=== PATIENT | female | born 1990 | race African-American/Black ===

== ENCOUNTER 2023-10-14 22:17 | Emergency (ER) | payer BC ==
[2023-10-14 22:26] VITALS: RESP 18; TEMP 98.2; BMI 54.0
[2023-10-15 00:24] LABS: EPI CELLS >36 /uL (0-25.1); HCG,QUALITATIVE URINE Negative; HYALINE CASTS 2 /uL (0-3.1); URINE APPEARANCE CLOUDY; URINE BACTERIA 718 /uL (0-1359); URINE BILIRUBIN NEGATIVE (NEGATIVE); URINE COLOR YELLOW; URINE GLUCOSE (UA) NEGATIVE (NEGATIVE); URINE KETONE TRACE (NEGATIVE); URINE LEUK ESTERASE NEGATIVE (NEGATIVE); URINE NITRITE NEGATIVE (NEGATIVE); URINE PROTEIN 1+ (NEGATIVE); URINE RBC 40 /uL (0-23.9); URINE WBC 54 /uL (0-25.8)
[2023-10-15] MEDS ORDERED: CYCLOBENZAPRINE HCL 10 MG TABLET (FP) PO ONE (02:49)
[2023-10-15] MEDS ORDERED: KETOROLAC TROMETHAMINE 15 MG/ML VIAL IM ONE (02:49)
[2023-10-15] MEDS ORDERED: LIDOCAINE 5% TOPICAL PATCH TP ONE (02:49)
[2023-10-15] MEDS ORDERED: CYCLOBENZAPRINE HCL 10 MG TABLET (FP) ONE (02:51)
[2023-10-15] MEDS ORDERED: KETOROLAC TROMETHAMINE 15 MG/ML VIAL ONE (02:51)
[2023-10-15] MEDS ORDERED: LIDOCAINE 4% PATCH TP ONE (02:56)
[2023-10-15 03:48] VITALS: BP 100/67; PULSE 83
[2023-10-15] MEDS ORDERED: LIDOCAINE PATCH REMOVAL MC ONE (15:00)
== END 2023-10-15 03:48 | disposition home or self-care (01) ==
LOC: JER 22:17
PROC: 3E0233Z Introduction of Anti-inflammatory into Muscle, Percutaneous Approach (ICD-10-PCS; principal; 2023-10-15)
DX: M54.31 Sciatica, right side (principal); M51.36 Other intervertebral disc degeneration, lumbar region; M54.50 Low back pain, unspecified
CPT/HCPCS: 72100-TC-FY; 81003; 84703; 99284-25

== ENCOUNTER 2023-10-22 17:20 | Emergency (ER) | payer BC ==
[2023-10-22 17:31] VITALS: BP 115/59; PULSE 88; RESP 18; TEMP 98.1; BMI 52.9
== END 2023-10-22 18:19 | disposition home or self-care (01) ==
LOC: JERFT 17:20
DX: G89.29 Other chronic pain (principal); M54.9 Dorsalgia, unspecified
CPT/HCPCS: 99282-25

== ENCOUNTER 2024-06-09 21:31 | Emergency (ER) | payer BC ==
[2024-06-09 21:40] VITALS: BP 122/73; PULSE 78; RESP 18; TEMP 98.1; BMI 52.0
== END 2024-06-10 01:11 | disposition home or self-care (01) ==
LOC: JER 21:31
DX: S99.921A Unspecified injury of right foot, initial encounter (principal); W11.XXXA Fall on and from ladder, initial encounter; Y99.0 Civilian activity done for income or pay
CPT/HCPCS: 73630-TC-RT-FY; 99285-25

== ENCOUNTER 2025-03-19 09:24 | Emergency (ER) | payer BC ==
[2025-03-19 09:33] VITALS: BP 110/55; PULSE 75; RESP 18; TEMP 97.8; BMI 52.9
[2025-03-19] MEDS ORDERED: MAG HYDROX/AL HYDROX/SIMETH 30 ML UNIT-DOSE CUP ONE (10:13)
[2025-03-19] MEDS ORDERED: FAMOTIDINE 20 MG TABLET ONE (10:13)
[2025-03-19] MEDS: MAG HYDROX/AL HYDROX/SIMETH 30 ML UNIT-DOSE CUP PO ONE (10:15)
[2025-03-19] MEDS: FAMOTIDINE 20 MG TABLET PO ONE (10:15)
[2025-03-19] MEDS ORDERED: SUCRALFATE 1 GM TABLET (FP) ONE (10:16)
[2025-03-19] MEDS: SUCRALFATE 1 GM TABLET (FP) PO ONE (10:18)
[2025-03-19] MEDS ORDERED: LIDOCAINE VISCOUS 2% ORAL/TOP 15 ML UNIT-DOSE CUP ONE (11:06)
[2025-03-19] MEDS: LIDOCAINE VISCOUS 2% ORAL/TOP 15 ML UNIT-DOSE CUP MM ONE (11:08)
[2025-03-19] MEDS: LACTATED RINGERS SOLUTION 1000 ML INFUS.BAG IV ONE (12:03)
[2025-03-19] MEDS: ACETAMINOPHEN 1000 MG/100 ML BAG IVPB ONE (12:03)
[2025-03-19] MEDS: ONDANSETRON 4 MG/2 ML VIAL IVPUSH ONE (12:03)
[2025-03-19] MEDS ORDERED: ACETAMINOPHEN INJECTION 100 ML ONE (12:05)
[2025-03-19] MEDS ORDERED: ONDANSETRON 4 MG/2 ML VIAL ONE (12:05)
[2025-03-19 12:06] LABS: ABSOLUTE IMMATURE GRANULOCYTES 0.02 x10^3/uL (0.0-0.031); EOSINOPHILS # 0.35 x10^3/uL (0.04-0.36); HEMATOCRIT 35.1 % (34.1-44.9); HEMOGLOBIN 10.8 g/dL (11.2-15.7); MCHC 30.8 g/dl (32.2-35.5); MONOCYTE % 4.6 % (4.7-12.5)
[2025-03-19 12:08] LABS: BASOPHILS # 0.01 x10^3/uL (0.01-0.08); EOSINOPHIL % 5.3 % (0.7-5.8); MEAN CELL VOLUME 73.3 fl (79.4-94.8); MEAN PLT VOLUME 11.2 fl (9.4-12.3); PLATELET COUNT 357 x10^3/uL (182-369); RDW 17.4 % (12.1-16.8)
[2025-03-19 12:26] LABS: POTASSIUM 4.3 mmol/L (3.5-5.1)
[2025-03-19 12:29] LABS: ALBUMIN 3.4 g/dl (3.4-5.0); BLOOD UREA NITROGEN 17.1 mg/dL (7-18); CALCIUM 8.9 mg/dL (8.5-10.1)
[2025-03-19 12:34] LABS: BILIRUBIN,TOTAL 0.6 mg/dL (0.2-1)
[2025-03-19 12:38] LABS: LACTIC ACID 2.1 mmol/L (0.4-2.0)
[2025-03-19 14:26] LABS: URINE APPEARANCE CLEAR; URINE BILIRUBIN NEGATIVE (NEGATIVE); URINE COLOR YELLOW; URINE GLUCOSE (UA) NEGATIVE (NEGATIVE); URINE KETONE NEGATIVE (NEGATIVE); URINE LEUK ESTERASE NEGATIVE (NEGATIVE); URINE NITRITE NEGATIVE (NEGATIVE); URINE PROTEIN NEGATIVE (NEGATIVE); URINE UROBILINOGEN 0.2 mg/dL (0.2-1.0)
== END 2025-03-19 16:04 | disposition home or self-care (01) ==
LOC: JER 09:24
PROC: 3E033NZ Introduction of Analgesics, Hypnotics, Sedatives into Peripheral Vein, Percutaneous Approach (ICD-10-PCS; principal; 2025-03-19)
PROC: 3E033GC Introduction of Other Therapeutic Substance into Peripheral Vein, Percutaneous Approach (ICD-10-PCS; 2025-03-19)
DX: R11.2 Nausea with vomiting, unspecified (principal); R07.2 Precordial pain; R10.13 Epigastric pain; R35.0 Frequency of micturition
CPT/HCPCS: 0241U-QW; 36415; 71046-TC-FY; 74177-TC; 80053; 81003; 83605; 83690; 84703; 85025; 87086; 93005; 93010; 96374; 96375; 99285-25; Q9967